=== PATIENT | male | born 1940 | race African-American/Black ===

== ENCOUNTER 2018-03-23 12:23 | Outpatient (CLI) | payer MEDICARE, OTHER ==
--- NOTE | 2018-03-23 14:40 | ULT ---
ULTRASOUND WITH DOPPLER DUPLEX VENOUS LOWER EXTREMITY RIGHT: HISTORY: 77-year-old male with right lower extremity pain. TECHNIQUE: Color flow Doppler, spectral waveform analysis of pulsed Doppler, and valencia-scale imaging with kailey shanti and augmentation, were used to evaluate the right common femoral, femoral, popliteal, posterior tibial, and superficial femoral, veins; and the proximal portions of the profunda femoral and greater saphenous, veins. FINDINGS: There is normal compressibility, demonstration of blood flow by color Doppler and pulsed Doppler, and response to augmentation, in all interrogated veins. IMPRESSION: Negative. No deep vein thrombosis in the right lower extremity. jn POS: [facility]
--- NOTE | 2018-03-23 15:29 | ULT ---
DOPPLER ARTERIAL EVALUATION OF THE RIGHT LOWER EXTREMITY: INDICATION: Right lower extremity pain, hypertension, poor circulation. FINDINGS: There is triphasic-appearing waveform seen with the arterial structures of the right lower extremity, except for anterior tibial artery where there is more biphasic-appearing waveform. 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 Otherwise, there is antegrade trip hasic-appearing waveform within the arterial structures of the right lower extremity. POS: [facility]
== END 2018-03-23 12:24 | disposition home or self-care (01) ==
LOC: ULT 12:23
PROVIDERS: ATTEND Nurse Practitioner Family
DX: M79.604 Pain in right leg (principal); I10 Essential (primary) hypertension; I99.9 Unspecified disorder of circulatory system; M79.2 Neuralgia and neuritis, unspecified; I70.201 Unspecified atherosclerosis of native arteries of extremities, right leg; Z79.01 Long term (current) use of anticoagulants; Z89.512 Acquired absence of left leg below knee; Z86.73 Personal history of transient ischemic attack (TIA), and cerebral infarction without residual deficits
CPT/HCPCS: 93923

== ENCOUNTER 2018-12-04 19:31 | Emergency (ER) | payer MEDICARE, OTHER ==
[2018-12-04] MEDS ORDERED: Ketorolac Tromethamine 30 MG/ML VIAL ONE (19:59)
[2018-12-04 20:24] LABS: #Lymphocytes 0.6 thou/uL (1.20-3.40); #Monocytes 0.3 thou/uL (0.11-0.59); #Neutrophils 10.3 thou/uL (1.40-6.50); %Basophils 0.2 % (0.0-1.0); %Eosinophils 0.2 % (0.0-10.0); %Lymphocytes 4.9 % (21.0-51.0); %Monocytes 2.5 % (0.0-10.0); %Neutrophils 92.2 % (42.0-75.0); Hemoglobin 12.9 g/dL (14.0-18.0); Mean Corpuscular HGB CONC 31.6 g/dL (32.0-36.0); Mean Corpuscular Hemoglobin 27.9 pg (27.0-31.0); Mean Corpuscular Volume 88.2 fL (78.0-98.0); Platelet Count 505 thou/uL (130-400); RBC Distribution Width 13.3 % (11.5-14.5); Red Blood Cell (RBC) Count 4.64 mill/uL (4.70-6.10); White Blood Cell (WBC) Count 11.2 thou/uL (4.8-10.8)
--- NOTE | 2018-12-04 20:27 | RAD ---
FXR Knee Lt 4 View STANDARD: 12/04/2018 7:57 PM CLINICAL INDICATION: Pain, edema. History of amputation COMPARISON: None. FINDINGS: Fracture:No fracture. Below the knee amputation is present. Arthropathy:Moderate to severe Incidental findings:Surgical clips There is prominent joint capsular distention. IMPRESSION: 1. 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 2. Prominent joint capsular distention. Correlate clinically.
[2018-12-04 21:08] LABS: ALT (SGPT) 24 U/L (8-55); AST (SGOT) 30 U/L (5-34); Albumin 4.2 g/dL (3.4-4.8); Alkaline Phosphatase 75 U/L (40-150); Anion Gap 14 mmol/L (10-20); BUN (Urea Nitrogen) 13 mg/dL (8.4-25.7); Bilirubin, Total 0.6 mg/dL (0.2-1.2); Calc. Creatinine Clearance 0 mL/min (70-130); Calcium 9.6 mg/dL (7.8-10.44); Carbon Dioxide 26 mmol/L (23-31); Chloride 101 mmol/L (98-107); Estimated GFR-MDRD 86; Globulin 3.4 g/dL (2.4-3.5); Glucose 132 mg/dL (83-110); Potassium 4.2 mmol/L (3.5-5.1); Protein, Total 7.6 g/dL (5.8-8.1); Sodium 137 mmol/L (136-145)
== END 2018-12-04 21:30 | disposition home or self-care (01) ==
LOC: ERS 19:31
DX: M25.562 Pain in left knee (principal); E78.5 Hyperlipidemia, unspecified; I10 Essential (primary) hypertension; Z79.82 Long term (current) use of aspirin; Z79.01 Long term (current) use of anticoagulants; Z86.73 Personal history of transient ischemic attack (TIA), and cerebral infarction without residual deficits; Z79.899 Other long term (current) drug therapy
CPT/HCPCS: 80053; 85025; 85652; 86140; 96374; J1885

== ENCOUNTER 2018-12-22 13:04 | Outpatient (CLI) | payer MEDICARE, OTHER ==
--- NOTE | 2018-12-22 14:29 | RAD ---
LEFT KNEE 2 VIEWS: Date; 12/22/18 HISTORY: Infection, left knee pain. FINDINGS/IMPRESSION: Comparison made with exam of 12/04/18. 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 No acute fracture, dislocation, or bony destruction is seen. Surgical clips ar e again seen in the soft tissues. POS: [facility]
== END 2018-12-22 13:05 | disposition home or self-care (01) ==
LOC: RAD-FRANK 13:04
PROVIDERS: ATTEND Nurse Practitioner Family
DX: T84.54XD Infection and inflammatory reaction due to internal left knee prosthesis, subsequent encounter (principal); M17.11 Unilateral primary osteoarthritis, right knee; Z89.512 Acquired absence of left leg below knee
CPT/HCPCS: 36415; 80053; 85025

== ENCOUNTER 2022-09-26 12:22 | Outpatient (CLI) | payer OTHER | END 2022-09-26 12:23 | disposition home or self-care (01) | LOC: BICRAD 12:22 | PROVIDERS: ATTEND Nurse Practitioner Family | DX: L03.818 Cellulitis of other sites (principal); M25.462 Effusion, left knee | CPT/HCPCS: 36415; 80053; 85025; 85379; 85610; 85730 ==

== ENCOUNTER 2024-06-15 13:10 | Outpatient (CLI) | payer OTHER | END 2024-06-15 13:11 | disposition home or self-care (01) | LOC: BICRAD 13:10 | PROVIDERS: ATTEND Family Medicine | DX: R05.3 Chronic cough (principal); I77.1 Stricture of artery; M47.816 Spondylosis without myelopathy or radiculopathy, lumbar region; M51.369 Other intervertebral disc degeneration, lumbar region without mention of lumbar back pain or lower extremity pain; M25.78 Osteophyte, vertebrae | CPT/HCPCS: 71046 ==

== ENCOUNTER 2024-10-09 13:15 | Emergency (ER) | payer OTHER | END 2024-10-09 15:10 | disposition home or self-care (01) | LOC: ERS 13:15 | DX: M71.162 Other infective bursitis, left knee (principal); I10 Essential (primary) hypertension; Z86.73 Personal history of transient ischemic attack (TIA), and cerebral infarction without residual deficits | CPT/HCPCS: 99283 ==

== ENCOUNTER 2024-10-28 11:44 | Outpatient (CLI) | payer OTHER | END 2024-10-28 11:45 | disposition home or self-care (01) | LOC: ULT 11:44 | PROVIDERS: ATTEND Nurse Practitioner Family | DX: S83.8X9A Sprain of other specified parts of unspecified knee, initial encounter (principal); I10 Essential (primary) hypertension; D68.59 Other primary thrombophilia; I70.0 Atherosclerosis of aorta; E78.5 Hyperlipidemia, unspecified; M54.9 Dorsalgia, unspecified; G89.29 Other chronic pain; R41.3 Other amnesia; Z79.01 Long term (current) use of anticoagulants; Z89.512 Acquired absence of left leg below knee; Z86.73 Personal history of transient ischemic attack (TIA), and cerebral infarction without residual deficits; Z71.89 Other specified counseling | CPT/HCPCS: 93923 ==

== ENCOUNTER 2025-07-04 14:07 | Outpatient (CLI) | payer OTHER | END 2025-07-04 14:08 | disposition home or self-care (01) | LOC: BICRAD 14:07 | PROVIDERS: ATTEND Nurse Practitioner Family | DX: R05.8 Other specified cough (principal) | CPT/HCPCS: 71046 ==